=== PATIENT | female | born 1960 | race Caucasian/White ===

== ENCOUNTER 2021-05-17 21:15 | Emergency (ER) | payer OTHER ==
[~2021-05-17] VITALS: Ht 160 cm; Wt 86.2 kg
[2021-05-17] MEDS ORDERED: BUSPIRONE HCL5 MG (21:24)
[2021-05-17] MEDS ORDERED: SIMVASTATIN5 MG (21:24)
[2021-05-17] MEDS ORDERED: ULTRAM50 MG (21:24)
[2021-05-17] MEDS ORDERED: ZOLOFT50 MG (21:24)
[2021-05-18] MEDS ORDERED: DILAUDID2 MG PO (00:29)
--- NOTE | 2021-05-18 12:19 | NUR ---
FAXED RECORDS TO [facility] REQUESTED.
== END 2021-05-18 00:48 | disposition home or self-care (01) ==
LOC: ED 21:15
DX: S52.571A Other intraarticular fracture of lower end of right radius, initial encounter for closed fracture (principal); S52.611A Displaced fracture of right ulna styloid process, initial encounter for closed fracture; M19.90 Unspecified osteoarthritis, unspecified site; Z88.5 Allergy status to narcotic agent; Z79.899 Other long term (current) drug therapy; W18.2XXA Fall in (into) shower or empty bathtub, initial encounter
CPT/HCPCS: 29125; 73110; 99283-25; J1170; J3010